=== PATIENT | female | born 1975 | race Caucasian/White ===

== ENCOUNTER 2023-10-03 02:05 | Observation (INO) | payer OTHER ==
[~2023-10-03 02:05] MED LIST: Bactrim Ds Tab1 EACH PO; DHEA PO; ERGO50000 PO; IBUP800 PO; Mobic15 MG PO; Norco 5-325 Ta1 EACH PO; OXYACE5T PO; PROM25 PO; TRAM50 PO
[2023-10-03] MEDS ORDERED: MethylPREDNISolone Sod Succ 125 MG Vial IV ONE (02:50)
[2023-10-03] MEDS ORDERED: Famotidine 10 MG/ML 2ML Vial IV ONE (02:50)
[2023-10-03] MEDS ORDERED: EpiNEPhrine 1 MG/1 ML 1ML Vial IM ONE (02:50)
[2023-10-03] MEDS ORDERED: DiphenhydrAMINE HCl 50 MG/ML 1ML Vial IV ONE (02:50)
[2023-10-03] MEDS ORDERED: dexAMETHasone 4 MG TAB PO ONE (03:51)
[2023-10-03] MEDS ORDERED: NS 1,000 ML IV SCH (07:25)
[2023-10-03] MEDS ORDERED: EpiNEPhrine 1 MG/1 ML 1ML Vial IM PRN (07:25)
[2023-10-03] MEDS ORDERED: MethylPREDNISolone Sod Succ 125 MG Vial IV SCH (09:00)
[2023-10-03] MEDS ORDERED: Amoxicillin/Clavulanate K 875 MG Tab PO SCH (09:00)
[2023-10-03] MEDS ORDERED: DiphenhydrAMINE HCL 25 MG Cap PO SCH (09:00)
== END 2023-10-03 20:24 | disposition left against medical advice (07) ==
LOC: ER 02:05 → MEDS 02:06
PROVIDERS: ADMIT Student in an Organized Health Care Education/Training Program
DX: T78.2XXA Anaphylactic shock, unspecified, initial encounter (principal)
CPT/HCPCS: 96372-59; 96374; 96375; 99285-25